=== PATIENT | female | born 1980 | race Hispanic/Latino ===

== ENCOUNTER 2020-10-25 20:27 | Emergency (ER) | payer MEDICAID ==
[~2020-10-25 20:27] MED LIST: ALBU8.5H8 IH; LISI-613 PO; METO-408 PO
[2020-10-25] MEDS ORDERED: DiphenhydrAMINE HCL 50 MG/ML VIAL ONE (21:43)
== END 2020-10-25 22:09 | disposition home or self-care (01) ==
LOC: EDH 20:27
DX: F41.9 Anxiety disorder, unspecified (principal); I10 Essential (primary) hypertension; Z98.890 Other specified postprocedural states
CPT/HCPCS: 96372; 99283; J1200